=== PATIENT | female | born 1945 | race Caucasian/White ===

== ENCOUNTER 2019-06-18 19:08 | Emergency (ER) | payer MEDICARE, MEDICAID ==
[2019-06-18] MEDS ORDERED: Ondansetron 4 MG Tab.DIS PO ONE (19:09)
[2019-06-18] MEDS ORDERED: Ciprofloxacin 500 MG Tab PO ONE ×2 (19:09→22:17)
[2019-06-18] MEDS ORDERED: Acetaminophen/HYDROcodone 325-10 MG Tab PO ONE (19:09)
[2019-06-18] MEDS ORDERED: Sodium Chloride 0.9% 1,000 ML IV ONE (19:44)
[2019-06-18 20:24] LABS: ANION GAP 16.4
[2019-06-18] MEDS ORDERED: Iopamidol 612 MG/ML 100 ML Bottle IVPUSH ONE (21:08)
[2019-06-18] MEDS ORDERED: fentaNYL 100 MCG/2 ML SDV IVPUSH ONE (21:19)
[2019-06-18] MEDS ORDERED: Ondansetron 4 MG/2 ML SDV IVPUSH ONE (21:20)
[2019-06-18] MEDS ORDERED: Tamsulosin 0.4 MG Cap.ER PO ONE (22:18)
[2019-06-18] MEDS ORDERED: Ondansetron 4 MG Tab.DIS ONE (22:42)
[2019-06-18] MEDS ORDERED: Acetaminophen/HYDROcodone 325-10 MG Tab ONE (22:42)
[2019-06-18] MEDS ORDERED: Ciprofloxacin 500 MG Tab ONE (22:42)
--- NOTE | 2019-06-18 22:54 | EDM.PDOC ---
"ED HPI GENERAL MEDICAL PROBLEM - General Chief Complaint: Abdominal Pain Stated Complaint: LEFT STOMACH AREA HURTS Time Seen by Provider: 06/18/19 20:00 Source of Information: Reports: Patient History Limitations: Reports: No Limitations - History of Present Illness INITIAL COMMENTS - FREE TEXT/NARRATIVE: ED with C/o Left lower abdominal pain , Left flank pain , with constipation, Took 2 doses mild of mag with some result. Vomited a couple of times this am, reports eating and drinking. Low grade fever, No urinary c/o. Hx constipation in ast, Family reports eats poorly. Has multiple glasses of various liquids around but rarely drinks any of it. Left Lower Abdomen Pain Score (Numeric/FACES): 10 - Related Data Allergies Allergy/AdvReac Type Severity Reaction Status Date / Time acetaminophen [From Percocet] Allergy Mild Nausea Verified 06/18/19 19:45 oxycodone [From Percocet] Allergy Mild Nausea Verified 06/18/19 19:45 Home Meds: Home Meds Cholecalciferol (Vitamin D3) [Vitamin D3] 1,000 unit PO DAILY 06/18/19 [History] Magnesium Hydroxide [Milk of Magnesia] 30 ml PO DAILY PRN 06/18/19 [History] Mv-Mn/Folic/Brad/Vit K/B Comp,C [Women's Daily Pack] 1 each PO DAILY 06/18/19 [ History] Past Medical History HEENT History: Reports: None Cardiovascular History: Reports: None Respiratory History: Reports: None Gastrointestinal History: Reports: None Neurological History: Reports: Cerebral Aneurysms, CVA Other Neuro History: 2 aneurysms on right side Hematologic History: Reports: None Immunologic History: Reports: None Oncologic (Cancer) History: Reports: None - Infectious Disease History Infectious Disease History: Reports: None Social & Family History - Tobacco Use Smoking Status *Q: Never Smoker - Recreational Drug Use Recreational Drug Use: No ED ROS GENERAL - Review of Systems Review Of Systems: See Below Constitutional: Reports: Fever, Decreased Appetite HEENT: Reports: No Symptoms Respiratory: Reports: No Symptoms Cardiovascular: Reports: No Symptoms GI/Abdominal: Reports: Abdominal Pain (radiates through back on left side, ), Constipation, Decreased Appetite, Nausea, Vomiting. Denies: Hematemesis Musculoskeletal: Reports: No Symptoms Skin: Reports: No Symptoms Neurological: Reports: Pre-Existing Deficit ED EXAM, GI/ABD - Physical Exam Exam: See Below Exam Limited By: No Limitations General Appearance: Alert, Mild Distress, Thin Ears: Normal External Exam, Normal TMs Nose: Normal Inspection Throat/Mouth: Normal Inspection Head: Atraumatic Neck: Normal Inspection Respiratory/Chest: No Respiratory Distress, Lungs Clear, Normal Breath Sounds Cardiovascular: Normal Peripheral Pulses, Regular Rate, Rhythm GI/Abdominal Exam: Tender (mild), Abnormal Bowel Sounds (decreased left). No: Distended, Guarding, Rigid, Rebound Back Exam: CVA Tenderness (L). No: Paraspinal Tenderness, Vertebral Tenderness Extremities: Normal Inspection Neurological: Alert, Oriented, Normal Cognition Psychiatric: Normal Affect, Normal Mood Skin Exam: Warm, Dry, Normal Color Course - Vital Signs Last Recorded V/S: Last Vital Signs Temp 97.4 F 06/18/19 19:46 Pulse 61 06/18/19 19:46 Resp 18 06/18/19 19:46 BP 164/84 H 06/18/19 19:46 Pulse Ox 100 06/18/19 19:46 - Orders/Labs/Meds Orders: Active Orders 24 hr Category Date Time Status CULTURE URINE [RM] Stat Lab 06/18/19 19:58 Received Labs: Laboratory Tests 06/18/19 06/18/19 06/18/19 Range/Units 19:56 19:56 19:56 WBC 16.1 H (5.0-10.0) 10^3/uL RBC 4.25 (4.2-5.4) 10^6/uL Hgb 13.1 (12.0-16.0) g/dL Hct 38.9 (37.0-47.0) % MCV 91.5 (80-100) fL MCH 30.8 (27.0-34.0) pg MCHC 33.7 (33.0-35.0) g/dL Plt Count 338 (150-450) 10^3/uL Neut % (Auto) 84.6 H (42.2-75.2) % Lymph % (Auto) 10.6 L (20.5-50.1) % [place] % (Auto) 4.5 (2-8) % Eos % (Auto) 0.2 L (1.0-3.0) % Baso % (Auto) 0.1 (0.0-1.0) % PT 9.8 (9.0-12.0) SEC INR 1.0 (0.9-1.2) Sodium 135 (135-145) mmol/L Potassium 3.4 L (3.6-5.0) mmol/L Chloride 94 L (101-111) mmol/L Carbon Dioxide 28.0 (21.0-31.0) mmol/L Anion Gap 16.4 BUN 23 H (7-18) mg/dL Creatinine 1.0 (0.6-1.3) mg/dL Est Cr Clr Drug Dosing 32.51 mL/min Estimated GFR (MDRD) 54 BUN/Creatinine Ratio 23.00 Glucose 180 H (74-105) mg/dL Lactic Acid (0.5-2.0) mmol/L Calcium 9.5 (8.4-10.2) mg/dl Total Bilirubin 0.8 (0.2-1.0) mg/dL AST 20 (10-42) IU/L ALT 18 (10-60) IU/L Alkaline Phosphatase 57 (42-121) IU/L Total Protein 7.1 (6.7-8.2) g/dl Albumin 4.3 (3.2-5.5) g/dl Globulin 2.8 Albumin/Globulin Ratio 1.54 Amylase 68 (28-100) U/L Lipase 31 (22-51) U/L Urine Color (YELLOW) Urine Appearance (CLEAR) Urine pH (5.0-9.0) Ur Specific [place] (1.005-1.030) Urine Protein (NEGATIVE) Urine Glucose (UA) (NEGATIVE) Urine Ketones (NEGATIVE) Urine Occult Blood (NEGATIVE) Urine Nitrite (NEGATIVE) Urine Bilirubin (NEGATIVE) Urine Urobilinogen (0.2-1.0) mg/dL Ur Leukocyte Esterase (NEGATIVE) Urine RBC /HPF Urine WBC (0-5/HPF) /HPF Ur Epithelial Cells (NOT SEEN) /HPF Calcium Oxalate Crystal (NOT SEEN) /HPF Urine Bacteria (0-FEW/HPF) /HPF 06/18/19 06/18/19 Range/Units 19:56 19:58 WBC (5.0-10.0) 10^3/uL RBC (4.2-5.4) 10^6/uL Hgb (12.0-16.0) g/dL Hct (37.0-47.0) % MCV (80-100) fL MCH (27.0-34.0) pg MCHC (33.0-35.0) g/dL Plt Count (150-450) 10^3/uL Neut % (Auto) (42.2-75.2) % Lymph % (Auto) (20.5-50.1) % [place] % (Auto) (2-8) % Eos % (Auto) (1.0-3.0) % Baso % (Auto) (0.0-1.0) % PT (9.0-12.0) SEC INR (0.9-1.2) Sodium (135-145) mmol/L Potassium (3.6-5.0) mmol/L Chloride (101-111) mmol/L Carbon Dioxide (21.0-31.0) mmol/L Anion Gap BUN (7-18) mg/dL Creatinine (0.6-1.3) mg/dL Est Cr Clr Drug Dosing mL/min Estimated GFR (MDRD) BUN/Creatinine Ratio Glucose (74-105) mg/dL Lactic Acid 1.3 (0.5-2.0) mmol/L Calcium (8.4-10.2) mg/dl Total Bilirubin (0.2-1.0) mg/dL AST (10-42) IU/L ALT (10-60) IU/L Alkaline Phosphatase (42-121) IU/L Total Protein (6.7-8.2) g/dl Albumin (3.2-5.5) g/dl Globulin Albumin/Globulin Ratio Amylase (28-100) U/L Lipase (22-51) U/L Urine Color Yellow (YELLOW) Urine Appearance Slightly cloudy (CLEAR) Urine pH 5.5 (5.0-9.0) Ur Specific [place] >= 1.030 (1.005-1.030) Urine Protein 100 H (NEGATIVE) Urine Glucose (UA) Negative (NEGATIVE) Urine Ketones 15 H (NEGATIVE) Urine Occult Blood Large H (NEGATIVE) Urine Nitrite Negative (NEGATIVE) Urine Bilirubin Small H (NEGATIVE) Urine Urobilinogen 0.2 (0.2-1.0) mg/dL Ur Leukocyte Esterase Trace H (NEGATIVE) Urine RBC 20-30 H /HPF Urine WBC 10-20 H (0-5/HPF) /HPF Ur Epithelial Cells Moderate H (NOT SEEN) /HPF Calcium Oxalate Crystal Few H (NOT SEEN) /HPF Urine Bacteria Few (0-FEW/HPF) /HPF Meds: Medications Discontinued Medications Generic Name Dose Route Start Last Admin Trade Name Liam PRN Reason Stop Dose Admin Hydrocodone Bitart/Acetaminophen Confirm 06/18/19 22:42 [place] 325-10 Mg Administered 06/18/19 22:43 Dose 2 tab .ROUTE .STK-MED ONE Ciprofloxacin 500 mg 06/18/19 22:17 06/18/19 22:29 Ciprofloxacin Hcl PO 06/18/19 22:18 500 mg ONETIME ONE Administration Ciprofloxacin Confirm 06/18/19 22:42 Ciprofloxacin Hcl Administered 06/18/19 22:43 Dose 500 mg .ROUTE .STK-MED ONE Fentanyl 25 mcg 06/18/19 21:19 06/18/19 21:28 Sublimaze IVPUSH 06/18/19 21:20 25 mcg ONETIME ONE Administration Sodium Chloride 1,000 mls @ 200 mls/hr 06/18/19 19:44 06/18/19 20:04 Normal Saline IV 06/19/19 00:43 200 mls/hr .BOLUS ONE Administration Iopamidol 100 ml 06/18/19 21:08 06/18/19 21:15 Isovue-300 (61%) IVPUSH 06/18/19 21:09 100 ml ONETIME ONE Administration Ondansetron HCl 4 mg 06/18/19 21:20 06/18/19 21:28 Zofran IVPUSH 06/18/19 21:21 4 mg ONETIME ONE Administration Ondansetron HCl Confirm 06/18/19 22:42 Zofran Odt Administered 06/18/19 22:43 Dose 8 mg .ROUTE .STK-MED ONE Tamsulosin HCl 0.4 mg 06/18/19 22:18 06/18/19 22:29 Flomax PO 06/18/19 22:19 0.4 mg ONETIME ONE Administration - Radiology Interpretation Free Text/Narrative:: [facility] Final Radiology Report Call: [phone] assistance Online chat: [email or web address] Name: DANNY ATKINS Age: 73Years F Date: 06/18/2019 SSN: -- : [id number] Study: CT ABDOMEN/PELVIS W Requesting Physician: PERCY ZENDEJAS Images: [id number] Addl Studies: Provided Clinical History: Contrast: With Contrast Medium: [id number] Contrast Amount: 65 mL Contrast Method: rac Page 1 of 2 PROCEDURE INFORMATION: Exam: CT Abdomen And Pelvis With Contrast Exam date and time: 06/18/2019 9:40 PM Age: 73 years old Clinical indication: Other: Left abd pain, fullness, wbc 16,100 TECHNIQUE: Imaging protocol: Computed tomography of the abdomen and pelvis with intravenous contrast. Radiation optimization: All CT scans at this facility use at least one of these dose optimization techniques: automated exposure control; mA and/or kV adjustment per patient size (includes targeted exams where dose is matched to clinical indication); or iterative reconstruction. Contrast material: [id number]; Contrast volume: 65 ml; Contrast route: RAC; COMPARISON: No relevant prior studies available. FINDINGS: Tubes, catheters and devices: PH[employer] M[employer] INSPECTOR shunt catheter is seen traversing the thorax and entering the abdomen. Lungs: Lung bases with emphysematous features. Minor scarring. No suspicious nodules. No infiltrates. No pleural effusion. Liver: Mild fatty liver change. No focal hepatic pathology. Patent portal vein. Gallbladder and bile ducts: No gallstones. Nonspecific mild intrahepatic biliary dilatation. Common bile duct does not appear to be dilated measuring approximately 6 mm. Pancreas: Pancreatic ductal dilatation to 4 mm. No pancreatic head mass evident. Spleen: Normal. No splenomegaly. Adrenals: Normal. No mass. Kidneys and ureters: Right upper pole exophytic 2.5 cm renal cyst. Anterior right renal 10 mm cyst. Left lower pole 2 mm nonobstructive renal calculus. Additional punctate calculi in the anterior mid left MILLY DANNY | Final Radiology Report CONFIDENTIALITY STATEMENT This report is intended only for use by the referring physician, and only in accordance with law. If you received this in error, call [phone]. Page 2 of 2 renal calyx. There is moderate left hydronephrosis with a distal left ureteral 4 x 2 mm calculus. See series 2, image 117. Stomach and bowel: Nonspecific edema or thickening of the duodenum in the region of the ampulla. This could represent inflammation or duodenitis. There also appears to be diffuse edema of the proximal jejunum. These features suggest enteritis. Distal small bowel loops are fluid-filled. The colon shows fluid retention and mild distension. These features suggest an enteritis process. Appendix: A normal appendix is seen posterior to the cecum on series 2, image 97 through 94. Intraperitoneal space: Minor free fluid in the pelvic cul-de-sac. Vasculature: See Liver Finding. Lymph nodes: Unremarkable. No enlarged lymph nodes. Bladder: Unremarkable as visualized. Reproductive: Unremarkable as visualized. Bones/joints: Degenerative lumbar spine changes. Soft tissues: Unremarkable. IMPRESSION: 1. Left hydroureteronephrosis with a distal ureteral 4 x 2 mm calculus. Additional nonobstructive left upper collecting system calculi. 2. Benign-appearing right renal cysts. 3. Enteritis bowel pattern. Appearance of duodenal and proximal jejunal bowel wall thickening. Large bowel fluid contents. 4. Minor intrahepatic biliary dilatation and pancreatic ductal dilatation. This may be secondary to duodenal edema in the region of the ampulla of Vater 5. Normal appendix. 6. Emphysematous lung base changes. 7. 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 Departure - Departure Time of Disposition: 22:44 Disposition: Home, Self-Care 01 Condition: Good Clinical Impression: Pyelonephritis, Renal calculus or stone, Renal cyst - Discharge Information *PRESCRIPTION DRUG MONITORING PROGRAM REVIEWED*: No *COPY OF PRESCRIPTION DRUG MONITORING REPORT IN PATIENT DONNA: No Instructions: Kidney Stones, [id number], Dietary Guidelines to Help Prevent Kidney Stones Referrals: PCP,None [Primary Care Provider] - Forms: ED Department Discharge Additional Instructions: Clinic recheck Friday Follow up sooner if fever chills worsening pain Zofran 4mg ODT one every 4 hours as needed for nausea Hydrocodone 10/325 one every 6 hours as needed for pain Cipro 500mg one twice daily for 7 days flomax O.4 mg one daily for one week Sepsis Event Note - Evaluation Sepsis Screening Result: No Definite Risk - Focused Exam Vital Signs: Vital Signs Temp Pulse Resp BP Pulse Ox 06/18/19 19:46 97.4 F 61 18 164/84 H 100 Date Exam was Performed: 06/19/19 Time Exam was Performed: 04:04 - My Orders Last 24 Hours: My Active Orders 06/18/19 19:58 CULTURE URINE [RM] Stat - Assessment/Plan Last 24 Hours: My Active Orders 06/18/19 19:58 CULTURE URINE [RM] Stat"
== END 2019-06-18 23:00 | disposition home or self-care (01) ==
LOC: DL.ED 19:08
DX: N13.6 Pyonephrosis (principal); N28.1 Cyst of kidney, acquired; Z88.6 Allergy status to analgesic agent; Z88.5 Allergy status to narcotic agent; Z86.73 Personal history of transient ischemic attack (TIA), and cerebral infarction without residual deficits
CPT/HCPCS: 36415; 74177; 80053; 81001; 82150; 82272; 83605; 83690; 85025; 85610; 87086; 96361; 96374; 96375; 99284; A9270; J2405; J3010; J7030; Q9967